=== PATIENT | male | born 1955 | race Hispanic/Latino ===

== ENCOUNTER 2021-10-23 10:24 | Emergency (ER) | payer OTHER ==
--- OUTSIDE RECORDS SUMMARY | 2021-10-23 10:27 | XMS REPORT | Continuity of Care Document ---
:1955 Author Organization [facility] t Address [address] [place] [address] [place] [id number] Care Team Providers Name Role Phone Unavailable Unavailable Unavailable Problems This patient has no known problems. Allergies, Adverse Reactions, Alerts This patient has no known allergies or adverse reactions. Medications This patient has no known medications. Procedures This patient has no known procedures. Encounters Start End Encounter Admission Attending Care Care Encounter Source Date/Time Date/Time Type Type Clinicians Facility Department ID 2021-10-13 Outpatient [facility] [id number] [facility]:53:[facility] Results This patient has no known results.
[2021-10-23 11:27] LABS: Absolute Lymphocytes (CBC) 1.4 K/uL (0.7-4.9); Basophils % 1.1 % (0-1.3); Hematocrit 47.4 % (39.6-49.0); Lymphocytes % 20.8 % (15.3-44.8); MPV 9.4 fL (7.6-11.3); RBC Red Blood Cell Count 5.54 M/uL (4.33-5.43)
[2021-10-23 11:35] LABS: BUN Blood Urea Nitrogen 17 mg/dL (7-18); Bicarbonate 29 mmol/L (21-32); Glucose Level 153 mg/dL (74-106); Potassium 4.3 mmol/L (3.5-5.1); Sodium Level 136 mmol/L (136-145); Troponin (Emerg Dept Use Only) < 0.02 ng/mL (0.0-0.045)
--- NOTE | 2021-10-23 12:07 | EDPHYS ---
Physician Documentation [facility] Name: Herb Guy Age: 66 yrs Sex: Male : 1955 Arrival Date: 10/23/2021 Time: 10:30 Bed 11 Private MD: Renaldo Rondon E ED Physician Yassine Britt HPI: 10/23 12:04 This 66 yrs old Male presents to ER via Ambulatory with complaints of High jmm Blood Pressure. 12:04 The patient has elevated blood pressure and discovered this at a physician's office. jmm Onset: The symptoms/episode began/occurred at an unknown time. Modifying factors: The symptoms are aggravated by. Associated signs and symptoms: Pertinent negatives: chest pain, dizziness, dyspnea, headache, lightheadedness, nausea, visual changes, vomiting, weakness. The patient has not experienced similar symptoms in the past. Patient denies patient denies chest pain headache, shortness of breath, vomiting, headache. Historical: - Allergies: 10:38 No Known Allergies; vg1 - Home Meds: 10:38 None [Active]; vg1 - PMHx: 10:38 Hypertensive disorder; vg1 - PSHx: 10:38 None; vg1 - Immunization history:: Client reports receiving the 2nd dose of the Covid vaccine. - Social history:: Smoking status: Patient denies any tobacco usage or history of. ROS: 12:04 Constitutional: Negative for fever, chills, and weight loss, Cardiovascular: Negative jmm for chest pain, palpitations, and edema, Respiratory: Negative for shortness of breath, cough, wheezing, and pleuritic chest pain, Abdomen/GI: Negative for abdominal pain, nausea, vomiting, diarrhea, and constipation, Neuro: Negative for headache, weakness, numbness, tingling, and seizure. 12:04 All other systems are negative. Exam: 12:04 Constitutional: This is a well developed, well nourished patient who is awake, alert, jmm and in no acute distress. Head/Face: atraumatic. Eyes: EOMI, no conjunctival erythema appreciated ENT: Moist Mucus Membranes Neck: Trachea midline, Supple Chest/axilla: Normal chest wall appearance and motion. Cardiovascular: Regular rate and rhythm. No edema appreciated Respiratory: Normal respirations, no respiratory distress appreciated Abdomen/GI: Non distended, soft Skin: General appearance color normal MS/ Extremity: Moves all extremities, no obvious deformities appreciated, no edema noted to the lower extremities Neuro: Awake and alert, normal gait Psych: Behavior is normal, Mood is normal, Patient is cooperative and pleasant Vital Signs: 10:34 BP 189 / 88; Pulse 70; Resp 16; Temp 97.7; Pulse Ox 100% ; Weight 85.28 kg; Height 5 vg1 ft. 3 in. (160.02 cm); Pain 0/10; 12:26 BP 148 / 84; Pulse 62; Resp 16; Pulse Ox 100% on R/A; Pain 0/10; ss 10:34 Body Mass Index 33.30 (85.28 kg, 160.02 cm) vg1 MDM: 10:43 Patient medically screened. luis antonio 12:05 Data reviewed: vital signs, nurses notes. Counseling: I had a detailed discussion with malgorzata the patient and/or guardian regarding: the historical points, exam findings, and any diagnostic results supporting the discharge/admit diagnosis, the need for outpatient follow up, to return to the emergency department if symptoms worsen or persist or if there are any questions or concerns that arise at home. ED course: Patient is alert and patient is alert and nontoxic in appearance in the ED. Has no complaints. Will treat with low-dose blood pressure medication advised to follow-up with PCP and otherwise given strict return precautions. Patient understood agrees plan of care. 10/23 10:51 Order name: CBC with Diff; Complete Time: 11:33 [facility] 10/23 10:51 Order name: BMP; Complete Time: 11:37 [facility] 10/23 10:51 Order name: Saline Lock; Complete Time: 11:06 [facility] 10/23 10:51 Order name: Troponin (emerg Dept Use Only); Complete Time: 11:37 [facility] 10/23 10:51 Order name: EKG - Nurse/Tech; Complete Time: 11:06 [facility] 10/23 11:08 Order name: EKG; Complete Time: 11:09 em1 Administered Medications: No medications were administered Disposition: 10/24 09:15 Co-signature as Attending Physician, Yassine Britt MD I agree with the assessment and [facility] plan of care. Disposition Summary: 10/23/21 12:06 Discharge Ordered Location: Home [facility] Condition: Stable [facility] Diagnosis - Elevated Blood Pressure [facility] Followup: [facility] - With: Renaldo Rondon MD - When: 1 - 2 days - Reason: Recheck today's complaints, Continuance of care, Re-evaluation by your physician Discharge Instructions: - Discharge Summary Sheet jm - Hypertension, Adult jm Forms: - Medication Reconciliation Form vero - Thank You Letter malgorzata - Antibiotic Education malgorzata - Prescription Opioid Use patricia Prescriptions: - hydrochlorothiazide 12.5 mg Oral tablet - take 1 tablet by ORAL route once daily; 30 tablet; Refills: 0, Product vero Selection Permitted Signatures: Dispatcher [employer] Yassine Cardenas MD MD cha Mickail, Joel, PA PA Zaynab Bentley, RN RN vg1
--- NOTE | 2021-10-23 12:07 | ER ---
Nurse's Notes [facility] Name: Herb Guy Age: 66 yrs Sex: Male : 1955 Arrival Date: 10/23/2021 Time: 10:30 Bed 11 Private MD: Renaldo Rondon E Diagnosis: Elevated Blood Pressure Presentation: 10/23 10:34 Chief complaint: Patient states: Pt was at Dr Rondon office and BP was 194/110. Pt was vg1 given Clonidine 0.1 mg about 45 minutes ago and BP was 198/98 before leaving office. Pt denies chest pain, headache, shortness of breath or difficulty breathing. Coronavirus screen: Vaccine status: Patient reports receiving the 2nd dose of the covid vaccine. Client denies travel out of the [place] in the last 14 days. Ebola Screen: Patient negative for fever greater than or equal to 101.5 degrees Fahrenheit, and additional compatible Ebola Virus Disease symptoms. Initial Sepsis Screen: Does the patient meet any 2 criteria? No. Patient's initial sepsis screen is negative. Does the patient have a suspected source of infection? No. Patient's initial sepsis screen is negative. Risk Assessment: Do you want to hurt yourself or someone else? Patient reports no desire to harm self or others. Onset of symptoms was October 23, 2021. 10:34 Method Of Arrival: Ambulatory vg1 10:34 Acuity: ERICA 3 vg1 Triage Assessment: 10:38 General: Appears in no apparent distress. comfortable, Behavior is calm, cooperative. vg1 Pain: Denies pain. Historical: - Allergies: 10:38 No Known Allergies; vg1 - Home Meds: 10:38 None [Active]; vg1 - PMHx: 10:38 Hypertensive disorder; vg1 - PSHx: 10:38 None; vg1 - Immunization history:: Client reports receiving the 2nd dose of the Covid vaccine. - Social history:: Smoking status: Patient denies any tobacco usage or history of. Screenin:56 Abuse screen: Denies threats or abuse. Denies injuries from another. Nutritional ss screening: No deficits noted. Tuberculosis screening: Never had TB. Fall Risk None identified. Assessment: 12:27 Reassessment: Patient appears in no apparent distress at this time. Patient and/or ss family updated on plan of care and expected duration. Pain level reassessed. Patient is alert, oriented x 3, equal unlabored respirations, skin warm/dry/pink. Vital Signs: 10:34 BP 189 / 88; Pulse 70; Resp 16; Temp 97.7; Pulse Ox 100% ; Weight 85.28 kg; Height 5 vg1 ft. 3 in. (160.02 cm); Pain 0/10; 12:26 BP 148 / 84; Pulse 62; Resp 16; Pulse Ox 100% on R/A; Pain 0/10; ss 10:34 Body Mass Index 33.30 (85.28 kg, 160.02 cm) vg1 ED Course: 10:30 Patient arrived in ED. am2 10:30 Renaldo Rondon MD is Private Physician. am2 10:38 Triage completed. vg1 10:38 Arm band placed on. vg1 10:41 King Davies PA is PHCP. [facility] 10:41 Yassine Britt MD is Attending Physician. [facility] 10:56 Tori Renteria, MOHSEN is Primary Nurse. ss 10:56 Patient has correct armband on for positive identification. Bed in low position. ss 11:09 Inserted saline lock: 20 gauge in right antecubital area, using aseptic technique. ss Blood collected. 12:06 Renaldo Rondon MD is Referral Physician. [facility] 12:26 No provider procedures requiring assistance completed. IV discontinued, intact, ss bleeding controlled, No redness/swelling at site. Pressure dressing applied. Administered Medications: No medications were administered Outcome: 12:06 Discharge ordered by . [facility] 12:27 Discharged to home ambulatory. 12:27 Condition: good 12:27 Discharge instructions given to patient, Instructed on discharge instructions, follow up and referral plans. medication usage, Demonstrated understanding of instructions, follow-up care, medications, Prescriptions given X 1. 12:28 Patient left the ED. Signatures: King Davies PA PA jmm Smirch, Shelby, MOHSEN RN Martina Youssef 2 Zaynab Ambrosio RN RN vg1
[2021-10-23 12:39] VITALS: TEMP 97.7; O2SAT 100
[2021-10-23 12:41] VITALS: BP 148/84
== END 2021-10-23 12:28 | disposition home or self-care (01) ==
LOC: ER 10:24
DX: I10 Essential (primary) hypertension (principal)
CPT/HCPCS: 36415; 80048; 84484; 85025; 93005; 99283

== ENCOUNTER 2024-04-28 12:06 | Inpatient (IN) | payer MEDICARE, OTHER ==
--- OUTSIDE RECORDS SUMMARY | 2024-04-28 21:57 | XMS REPORT | Continuity of Care Document ---
Author Name Unknown Address [address] [place] [address] [facility] Address [address] [place] [address] Care Team Providers Care Leaf Size Picker Name Role Phone ZULY ALMODOVAR Attending Clinician JAMIN De Los Santos Attending Clinician MIGUELITO Devlin Admitting Clinician Cora vailatayo Payers Payer Name Policy Type Policy Number Effective Date Expirati on Date Source [facility] [id number] 00:00:00 [facility] (MEDICARE REPLACEMENT HMO) [id number] 2021 00:00:00 Encounters Start Date/Time End Date/Time Encounter Type Admission Type Attending Clinicians Care Facility Care Department Encounter ID Source 2024-05-09 16:30:00 2024-05-09 16:30:00 Outpatient ZULY ALMODOVAR [facility] [id number] [facility] 2024-04-16 17:43:00 2024-04-28 19:45:00 Inpatient E JAMIN DURAN [facility] CAR [id number] [address] [facility] 2022-06-06 04:01:00 2022-06-06 04:01:00 Outpatient [facility] [id number] 2022-06-06 00:00:00 2022-06-06 00:00:00 Outpatient [facility] [id number] 2021-09-12 08:01:00 2021-09-12 08:01:00 Outpatient [facility] [id number] [facility]
[2024-04-28 22:16] VITALS: BMI 28.8
[2024-04-28] MEDS ORDERED: ATORVASTATIN 40 MG TAB ONE (22:36)
[2024-04-28] MEDS: ATORVASTATIN 40 MG TAB PO SCH (22:40)
[2024-04-29] MEDS ORDERED: MELATONIN 3 MG TABLET PO PRN (00:36)
[2024-04-29] MEDS ORDERED: DOCUSATE NA/SENNA CONC 1 TAB PO PRN (00:36)
[2024-04-29] MEDS ORDERED: ACETAMINOPHEN 500 MG TAB PO PRN (00:36)
[2024-04-29] MEDS: METOPROLOL TAR 25 MG TAB PO SCH (05:28)
[2024-04-29 05:50] LABS: Specific Gravity 1.025 (1.005-1.030); Sqamous Epithelial None Seen /HPF (None Seen); Urine Bacteria None Seen /HPF (<20); Urine Bilirubin NEGATIVE (Negative); Urine Blood Negative (Negative); Urine Clarity Clear (Clear); Urine Color Light-Yellow (Yellow); Urine Culture Reflex Order NOT NEEDED; Urine Glucose 4+ (Over) (Negative); Urine Ketones NEGATIVE (Negative); Urine Micro Reflex YN NO BILL MICROSCOPIC; Urine Mucus Slight /HPF (None Seen); Urine Nitrite NEGATIVE (Negative); Urine Protein NEGATIVE (Negative); Urine RBC <5 /HPF (None Seen); Urine Urobilinogen 1+ (Normal); Urine WBC <5 /HPF (<5)
[2024-04-29] MEDS: INSULIN REGULAR (HUMAN) 100 UNIT/ML SQ SCH (07:30)
[2024-04-29 07:51] LABS: Absolute Basophils 0.1 K/uL (0-0.5); Absolute Eosinophils 0.2 K/uL (0-0.5); Absolute Lymphocytes (CBC) 1.4 K/uL (0.7-4.9); Absolute Monocytes 0.9 K/uL (0.1-1.3); Absolute Neutrophil 6.9 K/uL (1.8-8.0); Basophils % 0.5 % (0-1.3); Eosinophils % 2.5 % (0-4.4); Hematocrit 28.8 % (39.6-49.0); Hemoglobin 9.7 g/dL (13.6-17.9); Lymphocytes % 14.8 % (15.3-44.8); MCH 28.8 pg (27.0-35.0); MCHC 33.6 g/dL (32.0-36.0); MCV 85.9 fL (80-100); MPV 8.8 fL (7.6-11.3); Monocytes % 9.3 % (3.3-12.3); Neutrophils % 72.9 % (41.7-73.7); Platelets 256 thou/uL (152-406); RBC Red Blood Cell Count 3.35 M/uL (4.33-5.43); Red Cell Distribution Width 13.9 % (12.1-15.2)
[2024-04-29] MEDS: LOSARTAN POTASSIUM 50 MG TABLET PO SCH (08:00)
[2024-04-29] MEDS: EMPAGLIFLOZIN 10 MG PO SCH (08:00)
[2024-04-29 08:32] LABS: Albumin 2.7 g/dL (3.4-5.0); Anion Gap 6.3 mEq/L (5.0-15.0); Magnesium 2.3 mg/dL (1.6-2.4); Potassium 4.3 mEq/L (3.5-5.1); Prealbumin 11.7 mg/dL (20-40)
[2024-04-29] MEDS: EZETIMIBE 10 MG TAB PO SCH (09:02)
[2024-04-29] MEDS: CLOPIDOGREL 75 MG TABLET PO SCH (09:02)
[2024-04-29] MEDS: ASPIRIN 81 MG CHEWABLE TABLET PO SCH (09:02)
[2024-04-29] MEDS: MINOCYCLINE HCL 50 MG CAP PO SCH (09:03)
--- NOTE | 2024-04-29 13:36 | P.RH.PN ---
Estimated Length of Stay: 14 Expected Discharge Date: 05/11/24 Discharge Disposition Plan: Home Family Support: Yes Senior Care Goal: Mobility, Transfers, Self Care Vital Signs: Last Vital Signs Temp 97.6 F 04/29/24 11:15 Pulse 74 04/29/24 11:15 Resp 18 04/29/24 11:15 BP 137/60 04/29/24 11:15 Pulse Ox 94 04/29/24 11:15 Laboratory: Laboratory Last Values WBC 9.50 thou/uL (4.3-10.9) 04/29/24 07:15 RBC 3.35 M/uL (4.33-5.43) L 04/29/24 07:15 Hgb 9.7 g/dL (13.6-17.9) L 04/29/24 07:15 Hct 28.8 % (39.6-49.0) L 04/29/24 07:15 MCV 85.9 fL (80-100) 04/29/24 07:15 MCH 28.8 pg (27.0-35.0) 04/29/24 07:15 MCHC 33.6 g/dL (32.0-36.0) 04/29/24 07:15 RDW 13.9 % (12.1-15.2) 04/29/24 07:15 Plt Count 256 thou/uL (152-406) 04/29/24 07:15 MPV 8.8 fL (7.6-11.3) 04/29/24 07:15 Neutrophils % 72.9 % (41.7-73.7) 04/29/24 07:15 Lymphocytes % 14.8 % (15.3-44.8) L 04/29/24 07:15 Monocytes % 9.3 % (3.3-12.3) 04/29/24 07:15 Eosinophils % 2.5 % (0-4.4) 04/29/24 07:15 Basophils % 0.5 % (0-1.3) 04/29/24 07:15 Absolute Neutrophils 6.9 K/uL (1.8-8.0) 04/29/24 07:15 Absolute Lymphocytes 1.4 K/uL (0.7-4.9) 04/29/24 07:15 Absolute Monocytes 0.9 K/uL (0.1-1.3) 04/29/24 07:15 Absolute Eosinophils 0.2 K/uL (0-0.5) 04/29/24 07:15 Absolute Basophils 0.1 K/uL (0-0.5) 04/29/24 07:15 Sodium 131 mEq/L (136-145) L 04/29/24 07:15 Potassium 4.3 mEq/L (3.5-5.1) 04/29/24 07:15 Chloride 102 mEq/L (98-107) 04/29/24 07:15 Carbon Dioxide 27 mEq/L (21-32) 04/29/24 07:15 Anion Gap 6.3 mEq/L (5.0-15.0) 04/29/24 07:15 BUN 22 mg/dL (7-18) H 04/29/24 07:15 Creatinine 0.85 mg/dL (0.70-1.30) 04/29/24 07:15 Est GFR (CKD-EPI) 95 ml/min (=/>90) 04/29/24 07:15 Glucose 93 mg/dL (74-106) 04/29/24 07:15 POC Glucose 109 mg/dL (65-120) 04/29/24 11:12 Hemoglobin A1c 5.7 % (4.2-6.3) 04/29/24 07:15 Calcium 8.5 mg/dL (8.5-10.1) 04/29/24 07:15 Magnesium 2.3 mg/dL (1.6-2.4) 04/29/24 07:15 Albumin 2.7 g/dL (3.4-5.0) L 04/29/24 07:15 Prealbumin 11.7 mg/dL (20-40) L 04/29/24 07:15 Urine Color Light-yellow (Yellow) 04/28/24 22:40 Urine Clarity Clear (Clear) 04/28/24 22:40 Urine pH 6.0 (5.0-7.0) 04/28/24 22:40 Ur Specific Peak 1.025 (1.005-1.030) 04/28/24 22:40 Glucose (UA)(Auto) 4+ (over) (Negative) H 04/28/24 22:40 Urine Ketones Negative (Negative) 04/28/24 22:40 Urine Blood Negative (Negative) 04/28/24 22:40 Urine Nitrite Negative (Negative) 04/28/24 22:40 Urine Bilirubin Negative (Negative) 04/28/24 22:40 Urine Urobilinogen 1+ (Normal) H 04/28/24 22:40 Ur Leukocyte Esterase Negative Rickey/uL (Negative) 04/28/24 22:40 Urine RBC <5 /HPF (None Seen) 04/28/24 22:40 Urine WBC <5 /HPF (<5) 04/28/24 22:40 Ur Squamous Epith Cells None seen /HPF (None Seen) 04/28/24 22:40 Urine Bacteria None seen /HPF (<20) 04/28/24 22:40 Urine Mucus Slight /HPF (None Seen) 04/28/24 22:40 Urine Culture Reflexed Not needed 04/28/24 22:40 Urine Total Protein Negative (Negative) 04/28/24 22:40 Weight: 163 lb Wound Present: No Closed Surgical Incision Present: No Negative Pressure Wound Therapy Present: No Physician Update: Na 131, prealbumin is 11.7, Hgb 9.7 on iron supp. Moderate to severe left upper weakness from his right brain stroke. CGA bed mobility, 120' x 2 with cane. Fair on balance. 20 steps one sided rail. WC 50' min assist. Summary: Patient's care plan and intermediate designer goals have been reviewed and revised as necessary. Please see the Rehabilitation Signature page for all necessary signatures.
[2024-04-29] MEDS: SODIUM CHLORIDE 1 GM TAB PO SCH (17:29)
[2024-04-29] MEDS: APIXABAN 2.5 MG TABLET PO SCH (21:26)
[2024-04-29] MEDS: ENSURE ENLIVE 237 ML CAN PO SCH (21:26)
--- NOTE | 2024-04-30 03:59 | HP ---
Date of Admission: 04/28/2024 Time Of Service: 1 p.m. Chief Complaint: "I had a stroke and my left arm is weak." History Of Present Illness: Mr. Guy is a 68-year-old right-handed patient with hypert ension, who developed sudden-onset left arm weakness and numbness while at work on 04/16/2024. He middleton d workup and evaluation, including a CT angiogram, which showed no large vessel occlusion, although t here was arthrosclerosis in the carotid bulbs. He was within the window for TNKs and did receive TNK s, however still has significant left upper extremity weakness. There was no large vessel occlusion, requiring intervention. The subsequent MRI identified an acute infarct in the right frontoparietal lobes. In addition, his stroke was complicated by [id number]-ZT-[id number] myocardial infarction on 04/16 and he was seen by Cardiology. Ejection fraction was 20% to 25%. His cardiac catheterization identified severe coronary artery disease and did have procedure on 04/25. The procedure was complicated by at rioventricular dyssynchrony and drop in blood pressure requiring a temporary pacemaker placement. It was done by the Impella-assisted PIC, that is of the right coronary artery, on 04/25. He had the re cannulization done. He did have an interrupted DAPT treatment with aspirin and Plavix. Following kingsley rgery, he had cardiac monitoring. He was evaluated by Therapy, including Speech Therapy, which showe d that the dysphagia which was around the time of the stroke had resolved. He was put on strict I's and O's, and had some issues of acute renal insufficiency, which was addressed with hydration. He di d have DVT prophylaxis throughout. He was evaluated again by Physical and Occupational Service, and found to have significant deficits of the left upper extremity; inability to manage activities such a s driving, working, and being able to return to his prior fully independent level of functioning. He did require minimum assist for bed mobilization, transferring, upper body dressing. He required mod erate assistance for lower body dressing. He did require standby assistance for ambulation with some difficulty with gait, tendency to fall to the left. Some mildly abnormal labs identified, included hemoglobin of 10.3; BUN of 23; calcium 8.1. As a result, his acute stroke with his early recovery af ter TNK is being limited and recent myocardial infarction along with his need to return to normal lev el of functioning, he is best admitted to inpatient rehabilitation for aggressive management of his c omorbid conditions and aggressive therapy. Past Medical History: As noted above. Allergies: NO KNOWN DRUG ALLERGIES. Imaging Studies: His brain CT scan on 04/18/2024 showed no acute intracranial hemorrhage. There was an area of hypoattenuation in the right frontoparietal lobes consistent with an evolving ischemic in farct, which was identified on a prior study. There was no hemorrhagic transformation. There was st able gliosis in the left occipital lobe. The MRI on the , identified areas of acute infarct in t he right frontoparietal lobe without hemorrhagic transformation. Laboratory Studies: White blood cell count 9.5, hemoglobin 9.7, platelets 256. Sodium 131, potassiu m 4.3, chloride 102, carbon dioxide 27, BUN 22, creatinine 0.85. Glucose 93, ranging up to 109. Hem oglobin A1c 5.7. Calcium 8.5, magnesium 2.3, albumin 2.7, prealbumin 11.7. Urinalysis: 4+ glucose, 1+ urobilinogen, otherwise unremarkable. Family History: Noncontributory. Social History: No recent alcohol, tobacco, or IV drug use. Review of Systems: Does report significant weakness in the left upper extremity. 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 Trace movement in the left shoulder and around 2/5 movement in the left arm. His left leg is much stronger around 4/5. Right side, no weakness re ported. Denies any nausea and vomiting. No fevers, chills. No constipation. No genitourinary issu es. No other positives on the systems review. Current Level Of Functioning: Currently, supervision for eating, oral hygiene. Moderate assistance for toileting, showering, upper body dressing, lower body dressing, and donning/doffing footwear. Fo r rolling left to right and right to left, contact guard assistance. For lying to sitting on the sli ding of bed, supervision. Sit to stand, moderate assistance. For transferring to toilet from the air, contact guard assistance. Ambulation, supervision, with a rolling walker he covered 120 feet. Physical Examination: Vital Signs: Blood pressure 137/60, pulse 74, respiratory rate 18, temperature 97.6, O2 saturation 9 4%. Weight 163 pounds, height 5 feet 3 inches, BMI 28.9. General: Mr. Guy is resting comfortably in bed. HEENT: He is normocephalic and atraumatic. He has a very poor dentition. Otherwise, no cranial ner ve deficits and no abnormalities in the head, eyes, ears, nose, throat other than mentioned. Respiratory: Good air movement. Abdomen: Soft. Heart: Regular. He does have a pacemaker defibrillator in place. Musculoskeletal: He is restricted on full movement of the left arm, which is the stroke affected segundo e. He does have again 4/5 strength proximally and distally, left lower extremity; right upper and lo wer extremities, 5/5. Decreased sensation on the left compared to the right upper and lower extremit ies. Assessment: Mr. Guy is a 68-year-old patient in the rehabilitation unit with impairment catego ry 01, stroke. His impairment group code is 01.1, left body involvement, right brain. Etiologic wilfred gnosis: Infarction of the right frontal and parietal lobes. His comorbidities are coronary artery d isease, decreased mobility, decreased physical functioning, dyslipidemia, hypertension, ald-YD-btrlrv t myocardial infarction. He has a pacemaker defibrillator. Has had bradycardia. Also, he had a low ejection fraction of 20% to 25%, and right upper extremity cephalic vein thrombophlebitis. Plan: 1.He will have physical, occupational, and speech therapy for 3.5 hours, 5/7 days. 2.He has multiple medications, which do include aspirin 81 mg daily, Tylenol 500 mg every 4 hours. We will continue it. In addition, he will continue Lipitor 40 mg at bedtime, Plavix 75 mg daily, Zet ia 40 mg daily, ferrous sulfate 325 mg daily. He does have an insulin sliding scale on board, Cozaar 50 mg daily, melatonin 3 mg at bedtime, metoprolol 12.5 mg twice daily, minoxidil 100 mg twice daily , HemocytePlus 1 tablet daily, Senokot-S 2 at bedtime, sodium chloride tablet 1 g twice daily, Ensure Enlive 237 mL twice daily. Comorbidities That Are Impacting Rehabilitation: His myocardial infarction is requiring him to be mo nitored at times and EKG may be done as appropriate. He will have nitroglycerin sublingual for any s ignificant chest pain, and Cardiology will be consulted as appropriate. He does have significant wea kness in left lower extremity and had a recent pacemaker placed there and will be watching the site f or any possible infection. Rehab Specific Plan: Mr. Guy will have physical, occupational, and speech therapy for 3.5 hour s, 5/7 days to improve his ability to transfer from bed to chair to toilet to be able to perform toil eting for transferring to the shower and performing showering, and to be able to ambulate 250 feet wi th modified independence using a rolling walker and if need be with a single prong cane. Also, up an d down 10 steps with using the right handrails and mobilized wheelchair with both legs and right arm 250 feet with modified independence. Mr. Guy will have 24 hours a day, 7 days a week [facility] and daily physician evaluation and management along with his therapy. He will have Flexo Operator evaluation and managed for disch arge planning, home equipment, and to have his followup set and medications as appropriate. Mr. Guy has good understanding of the process of admission to the inpatient rehabilitation faci lity, and how he will benefit from physical, occupational, speech therapy. If need be, additional he lp from Cardiology Service and Hospitalist Service may be required. Given his risk of complications with his comorbid conditions and his stroke, rehabilitation cannot be safely or effectively performed at a lower level facility such as [facility]. Barriers To Discharge: His pacemaker is in place and the pacemaker will be monitored. He is yet to receive the equipment to monitor it, but that apparently will be sent to him in 2 weeks. However, if need be, our bench molder apprentice service will be assisting with that and even after his discharge home. Length Of Stay: At least 2 weeks. Disposition: Home with Home Health to continue and with family support. Prognosis: Good. Rehabilitation Specific Goals: 1.Become independent with upper and lower body dressing; transferring to toilet and shower; perform toileting and showering; and independently perform activities of daily living. 2.Independently ambulate 250 feet with a rolling walker and perhaps a right hand cane. 3.Independently propel a wheelchair 250 feet with both legs and right hand. 4.Independently go up and down 10 steps with right hand and legs. 5.Independently perform all cognitive functioning, including medication management, setting followup visits, and safety awareness. The above goals were reviewed with Mr. Guy and he is in agreement. By signing this document, I acknowledge I personally performed a full physical examination on Mr. Her perales no later than 24 hours after his admission to the inpatient rehabilitation facility and determ ined that he is able to tolerate the above course of treatment at an intensive level for a reasonable period of time. A detailed individualized plan of care for him will be completed by hospital day 4 based on the preadmission screen, history and physical, and therapy evaluations. JOHN Voice ID: [id number]
[2024-04-30] MEDS: FERROUS SULFATE 325 MG TAB PO SCH (10:13)
[2024-04-30] MEDS: FE SULF/FA/VIT B COMP & C TAB PO SCH (10:14)
[2024-05-02 07:52] LABS: Absolute Basophils 0.1 K/uL (0-0.5); Absolute Eosinophils 0.3 K/uL (0-0.5); Absolute Lymphocytes (CBC) 1.6 K/uL (0.7-4.9); Absolute Monocytes 0.7 K/uL (0.1-1.3); Absolute Neutrophil 5.5 K/uL (1.8-8.0); Basophils % 1.2 % (0-1.3); Eosinophils % 3.3 % (0-4.4); Hematocrit 30.2 % (39.6-49.0); Hemoglobin 10.1 g/dL (13.6-17.9); Lymphocytes % 19.6 % (15.3-44.8); MCH 29.1 pg (27.0-35.0); MCHC 33.4 g/dL (32.0-36.0); MCV 87.3 fL (80-100); MPV 8.3 fL (7.6-11.3); Neutrophils % 66.9 % (41.7-73.7); Platelets 288 thou/uL (152-406); RBC Red Blood Cell Count 3.46 M/uL (4.33-5.43)
[2024-05-02 08:04] LABS: Anion Gap 6.5 mEq/L (5.0-15.0); Potassium 4.5 mEq/L (3.5-5.1)
--- NOTE | 2024-05-02 10:23 | P.CNS ---
Date of Consult: 05/02/24 Reason for Consult: Painful toenails Chief Complaint: Painful toenails Allergies No Known Allergies Allergy (Verified 04/28/24 22:01) Home Medications: Aspirin Chewable [Aspirin Chewable*] 81 mg PO DAILY 04/28/24 Atorvastatin Calcium 40 mg PO BEDTIME 04/28/24 Clopidogrel Bisulfate [Plavix*] 75 mg PO DAILY 04/28/24 Empagliflozin [Jardiance] 10 mg PO DAILY 04/28/24 Ezetimibe 10 mg PO DAILY 04/28/24 Losartan Potassium 50 mg PO DAILY 04/28/24 Metoprolol Tartrate [Lopressor*] 12.5 mg PO BID 04/29/24 - Past Medical/Surgical History Diabetic: Yes -: HTN -: CAD -: HLD -: Nstemi -: cva -: 04/2024 heart cath x2 w/pci -: 04/2024 CVA - TNK -: 04/25/24 - pacemaker ICD - Social History Alcohol use: Yes CD- Drugs: No Caffeine use: Yes Place of Residence: Home Review of Systems 10-point ROS is otherwise unremarkable Physical Examination Temp Pulse Resp BP Pulse Ox 97.8 F 61 18 123/66 95 05/02/24 07:38 05/02/24 07:38 05/02/24 07:38 05/02/24 07:38 05/02/24 07:38 General: Alert, In no apparent distress, Oriented x3 Cardiovascular: No edema, Normal pulses Capillary refill: <2 Seconds Musculoskeletal: No clubbing, No swelling, No contractures, No erythema, No tenderness, No warmth Integumentary: No rashes, No breakdown, No significant lesion, No tenderness/swelling, No erythema, No warmth, No cyanosis, Other (Thickened hypertrophic nails with subungual debris x 10) Neurological: Sensation intact Laboratory Data (last 24 hrs) 05/02/24 05/02/24 07:36 07:36 WBC 8.20 Hgb 10.1 L Hct 30.2 L Plt Count 288 Sodium 134 L Potassium 4.5 BUN 22 H Creatinine 0.72 Glucose 129 H - Problems (1) Tinea unguium Current Visit: Yes Status: Acute (2) 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
--- NOTE | 2024-05-03 03:50 | PN ---
Date of Progress Note: 05/02/2024 Time Of Service: 1:30 p.m. Subjective: Mr. Guy is resting in his room. 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 He does have the pacemaker in the left upper c hest with limited ability to elevate the arm due to the possibility of dislodgement, and therefore th at too combine with his stroke as the factor reducing the range of motion in the left arm elevation. Objective: No fevers, chills, myalgias, arthralgias, rash, headache, weight change. No other compla ints. Physical Examination: Vital Signs: Blood pressure 123/66, pulse 61, respiratory rate 18, temperature 97, oxygen saturation 95%. General: Mr. Guy is resting in bed. Family at the bedside. HEENT: He is normocephalic, atraumatic. He has poor dentition. Sclerae anicteric. Oropharynx is o therwise moist. Abdomen: Soft. Chest: Clear. Extremities: In terms of strength in the left deltoid, he has 3/5, biceps 3/5. Finger flexion and e xtension 2 to 3/5. His left lower extremity 4/5 proximally and distally. Laboratory Studies: White blood cell count 8.2, hemoglobin 10.1, platelets 288. Sodium 134, potassi um 4.5, chloride 106, carbon dioxide 26, BUN 22, creatinine 0.72, glucose ranged from 81 to 129, calc ium 9.0. Urinalysis on the 6th shows 4+ glucose, 1+ urobilinogen. X-ray/imaging: No new x-rays or imaging. Consultation: He was seen by Dr. Guanaco Condon on the Podiatry Service. He did debridement of the na ils at bedside. Progress Made With Physical, Occupational, And Speech Therapy: With physical therapy today, he ambul ated 250 feet, 350 feet, 125 feet with contact guard assistance. He goes up and down 10 steps and th en 15 steps with bilateral handrails and contact guard assistance. Ainmkw-ps-osh transfers done with standby assistance. Qdk-kw-ndaiz transfers done with standby assistance. With occupational therapy , independent with toileting, supervision for bathing, supervision also for upper body dressing and l ower body dressing, grooming independent. With speech, independently recalled 4/[address] 7 minutes delay, needed moderate to minimal assistance for recalling details based in the past pr esented. He was able to recall 10 of 20 items within a concrete category and 1 minute. Mr. Guy is making slow progress of his recovery of strength in left lower extremity, but otherw ise doing very well in the left lower extremity where his stroke is less impactful. Making some prog ress as well with his speech. Assessment: Mr. Guy is a 68-year-old patient in the rehabilitation unit with right hemispheric stroke and left upper more than lower extremity weakness and numbness. His speech and swallowing ar e preserved. He has pacemaker implanted. His comorbidities do include hypertension, ara-UO-apnrlea myocardial infarction, dyslipidemia, decreased mobility, decreased physical functioning, and bradycar wilfred and pacemaker placement and thrombophlebitis of the right upper extremity and low cardiac ejectio n fraction. Plan: 1.Continue with physical, occupational, and speech therapy for 3.5 hours, 5 of 7 days. 2.Continue with all his medications which include his treatment for DVT prophylaxis including Eliqui s 2.5 mg twice daily, stroke risk reduction with aspirin 81 mg daily and Lipitor 40 mg at bedtime, me latonin for insomnia, Lopressor for heart rate control, blood pressure addressed with the minocycline and Hemocyte Plus and Ensure Enlive, ferrous sulfate for his anemia and malnutrition, Senokot-S for constipation, sodium chloride tablets for hyponatremia. Comorbidities That Are Impacting Rehabilitation: His comorbid conditions are stably managed. They d o not negatively impact his rehabilitation. LB/МАРИНА Voice ID: [id number] Report ID: [id number]
[2024-05-03] MEDS: INSULIN REGULAR (HUMAN) 100 UNIT/ML SQ SCH (07:00)
--- NOTE | 2024-05-04 00:17 | PN ---
Date of Progress Note: 05/03/2024 Time Of Service: 1:35 p.m. Subjective: Mr. Guy is in his room. He is making slow progress in terms of recovery of streng th in left upper extremity. He can lift the left arm higher and flex the forearm with improved stren gth. 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 He does have pacemaker in the left chest implanted there and has some restriction to the full range of motion, but that is again limited by his stroke and weaknes s. Objective: No myalgias, arthralgias. No rash. No psychiatric complaints, gastrointestinal complain ts. Physical Examination: Vital Signs: Blood pressure 155/59, pulse 62, respiratory rate 18, temperature 97.6, oxygen saturati on 97%. General: Mr. Guy again is sitting in a chair. Family is at bedside. HEENT: He is normocephalic, atraumatic. He has poor dentition. He is atraumatic otherwise. Extremities: In terms of strength in the deltoid on the left at 3/5 biceps, 3/5 wrist flexion and ex tension, 2/5 in lower extremity, 4/5 on the left, 5/5 in right upper and lower extremity. Decreased sensation to light touch in the left compared to the right upper and lower extremities. Laboratory Studies: White blood cell count 8.2, hemoglobin 10.1, platelets 288. Glucose 113, trigly cerides 48, total cholesterol 77, LDL Crestor 33, HDL 34, cholesterol to HDL ratio 2.26. Medications: Have been reviewed. He is on Eliquis for depression, Tylenol for pain. He does have C ozaar for blood pressure control, melatonin for insomnia, Lopressor as well for blood pressure contro l, and minocycline, that is his antibiotic. Senokot-S for constipation. He has salt tablets for low sodium levels and his sodium diet has been now restricted and so that is a regular diet. Progress Made With Physical, Occupational, And Speech Therapy: Today with physical therapy, multiple tks-yo-jsifz transfer independently. He ambulated with a right forearm crutch 1000 feet and then 75 0 feet independently. He did have good upright posture and crutch placement. He ascended and descen ded 25 steps with bilateral handrails independently. With occupational therapy, completed lunch acti vities with independence. With speech, he was able to recall 4/4 unrelated words after 5 and 10-idalia te delay. He is showing improving working memory. He was able to name 15 items in the concrete rhea gory in 1 minute in 1 of 4 opportunities. Mr. Guy is making good progress overall with his physical, occupational, and speech therapy. 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 Assessment: Mr. Guy is a 68-year-old patient in rehabilitation unit with a right frontal hemis pheric stroke producing left arm more than leg and face weakness. He has decreased mobility, decreas ed physical functioning, cardiac placement for bradycardia, thrombophlebitis of right upper extremity . Plan: 1.Continue with physical, occupational, and speech therapy for 3.5 hours, 5 of 7 days. 2.Continue DVT prophylaxis with Eliquis. Continue aspirin, Lipitor for stroke risk reduction, ivette onin for insomnia, Lopressor for heart rate control along with minocycline for his blood pressure con trol, Ensure Enlive and ferrous sulfate for malnutrition and anemia, Senokot-S for constipation, hypo natremia addressed with sodium tablets. Comorbidities That Are Impacting Rehabilitation: As noted previously, comorbidities are stably manag ed and do not negatively impact his rehabilitation. NAJMA/MODL Voice ID: [id number] Report ID: [id number]
[2024-05-05 06:51] VITALS: BP 134/63; TEMP 97
[2024-05-05 07:16] LABS: Absolute Basophils 0.1 K/uL (0-0.5); Absolute Eosinophils 0.3 K/uL (0-0.5); Absolute Lymphocytes (CBC) 1.3 K/uL (0.7-4.9); Absolute Monocytes 0.6 K/uL (0.1-1.3); Absolute Neutrophil 5.9 K/uL (1.8-8.0); Eosinophils % 3.3 % (0-4.4); Hematocrit 29.9 % (39.6-49.0); Hemoglobin 10.1 g/dL (13.6-17.9); Lymphocytes % 16.3 % (15.3-44.8); MCH 29.3 pg (27.0-35.0); MCHC 33.6 g/dL (32.0-36.0); MCV 87.2 fL (80-100); MPV 8.1 fL (7.6-11.3); Monocytes % 7.6 % (3.3-12.3); Neutrophils % 71.8 % (41.7-73.7); Platelets 282 thou/uL (152-406); RBC Red Blood Cell Count 3.43 M/uL (4.33-5.43); Red Cell Distribution Width 14.1 % (12.1-15.2)
[2024-05-05 07:43] LABS: Albumin 2.7 g/dL (3.4-5.0); Anion Gap 4.6 mEq/L (5.0-15.0); Potassium 4.6 mEq/L (3.5-5.1); Prealbumin 14.5 mg/dL (20-40)
== END 2024-05-05 10:15 | disposition home or self-care (01) | DRG 56 ==
LOC: 5TH 12:35 → UNDOADMIN 12:35 → 5TH 21:35
PROVIDERS: ADMIT Psychiatry & Neurology Neurology with Special Qualifications in Child Neurology; ATTEND Psychiatry & Neurology Neurology with Special Qualifications in Child Neurology
PROC: 0HBRXZZ Excision of Toe Nail, External Approach (ICD-10-PCS; principal; 2024-05-02)
PROC: 0HBRXZZ Excision of Toe Nail, External Approach (ICD-10-PCS; 2024-05-02)
PROC: 0HBRXZZ Excision of Toe Nail, External Approach (ICD-10-PCS; 2024-05-02)
PROC: 0HBRXZZ Excision of Toe Nail, External Approach (ICD-10-PCS; 2024-05-02)
PROC: 0HBRXZZ Excision of Toe Nail, External Approach (ICD-10-PCS; 2024-05-02)
PROC: 0HBRXZZ Excision of Toe Nail, External Approach (ICD-10-PCS; 2024-05-02)
PROC: 0HBRXZZ Excision of Toe Nail, External Approach (ICD-10-PCS; 2024-05-02)
PROC: 0HBRXZZ Excision of Toe Nail, External Approach (ICD-10-PCS; 2024-05-02)
PROC: 0HBRXZZ Excision of Toe Nail, External Approach (ICD-10-PCS; 2024-05-02)
PROC: 0HBRXZZ Excision of Toe Nail, External Approach (ICD-10-PCS; 2024-05-02)
DX: I69.398 Other sequelae of cerebral infarction (principal); I21.4 Non-ST elevation (NSTEMI) myocardial infarction; E46 Unspecified protein-calorie malnutrition; E87.1 Hypo-osmolality and hyponatremia; I69.334 Monoplegia of upper limb following cerebral infarction affecting left non-dominant side; F32.A Depression, unspecified; R26.89 Other abnormalities of gait and mobility; B35.1 Tinea unguium; I10 Essential (primary) hypertension; I25.10 Atherosclerotic heart disease of native coronary artery without angina pectoris; E78.5 Hyperlipidemia, unspecified; R00.1 Bradycardia, unspecified; D64.9 Anemia, unspecified; G47.00 Insomnia, unspecified; K59.00 Constipation, unspecified; Z79.01 Long term (current) use of anticoagulants; Z95.0 Presence of cardiac pacemaker; Z68.29 Body mass index [BMI] 29.0-29.9, adult
CPT/HCPCS: 36415; 80048; 80061; 81001; 82040; 82947; 83036; 83735; 84134; 85025; 87086; 87088; 92523; 97110; 97112; 97116; 97129; 97163; 97165; 97530; 97542

== ENCOUNTER 2024-11-22 22:28 | Emergency (ER) | payer MEDICARE ==
[2024-11-22] MEDS ORDERED: TDAP (DIPHTH,PERTUSS(ACELL),TET VAC) 0.5 ML VIAL IMVAC ONE (22:52)
--- NOTE | 2024-11-22 23:36 | EDPHYS ---
Physician Documentation [facility] Name: Herb Guy Age: 69 yrs Sex: Male : 1955 Arrival Date: 11/22/2024 Time: 22:28 Bed 18 Private MD: ED Physician Yassine Britt HPI: 11/22 23:32 This 69 yrs old Male presents to ER via Ambulatory with complaints of kb Laceration To Hand. 23:32 Pt is a 69 year old male who presents for laceration to left hand after tripping and kb falling onto a pallet just area captain. States he has normal ROM to hand and didn't want to come in but his children made him. Denies any other injuries, denies loc. . Historical: - Allergies: 22:45 No Known Allergies; cp4 - PMHx: 22:45 Hypertensive disorder; Myocardial infarction; cp4 - PSHx: 22:45 3 stents; defib/pacemaker; cp4 - Immunization history:: Adult Immunizations up to date. - Infectious Disease History:: Denies. - Social history:: Smoking status: Patient denies any tobacco usage or history of. ROS: 23:30 Constitutional: As per HPI kb Exam: 23:30 Constitutional: This is a well developed, well nourished patient who is awake, alert, kb and in no acute distress. Head/Face: Normocephalic, atraumatic. Eyes: Pupils equal round and reactive to light, extra-ocular motions intact. Lids and lashes normal. Conjunctiva and sclera are non-icteric and not injected. Cornea within normal limits. Periorbital areas with no swelling, redness, or edema. ENT: Moist Mucous membranes Cardiovascular: Regular rate Respiratory: Respirations even and unlabored. No increased work of breathing. Talking in full sentences MS/ Extremity: Pulses equal, no cyanosis. Neurovascular intact. Full, normal range of motion. Neuro: Awake and alert, GCS 15, oriented to person, place, time, and situation. 23:30 Skin: abrasion to right side of nose due to glasses, abrasion to third and fourth digits on left hand, skin tear to fifth digit on left hand. Vital Signs: 22:44 BP 157 / 69; Pulse 75; Resp 18; Temp 98.2; Pulse Ox 95% ; Pain 0/10; cp4 23:50 BP 149 / 64; cp4 23:50 Pulse 71; Resp 18; Pulse Ox 96% ; cp4 22:44 Pain Scale: Adult cp4 MDM: 22:36 Medical Screening Exam initiated 23:32 Differential diagnosis: superficial laceration, tendon injury, vascular injury, kb fracture. Data reviewed: vital signs, nurses notes. Historians other than the Patient: Spouse/Significant Other: . Counseling: I had a detailed discussion with the patient and/or guardian regarding the historical points, exam findings, and any diagnostic results supporting the discharge/admit diagnosis, radiology results, the need for outpatient follow up, a family practitioner, to return to the emergency department if symptoms worsen or persist or if there are any questions or concerns that arise at home. 23:34 Independent interpretation of the following test(s) in the Emergency Department X-Ray: kb My interpretation is no fracture. 11/22 22:43 Order name: Hand Left 3 View XRAY kb 11/22 22:43 Order name: Wound Care: clean, apply steristrips and dress; Complete Time: 22:55 kb Administered Medications: 22:55 Drug: Boostrix Tdap IM 0.5 ml IM once; as a single dose Route: IM; Site: right deltoid; cp4 23:53 Follow up: Response: No adverse reaction cp4 Disposition: 11/23 06:45 Co-signature as Attending Physician, Yassine Britt MD I agree with the assessment and luis antonio plan of care. Disposition Summary: 11/22/24 23:35 Discharge Ordered Notes: Location: Home kb Condition: Stable kb Diagnosis - Laceration without foreign body of left hand - skin tear kb - Abrasion of nose kb - Abrasion of left hand kb - Abrasion of right hand kb Followup: kb - With: Emergency Department - When: As needed - Reason: Worsening of condition Followup: kb - With: Private Physician - When: 2 - 3 days - Reason: Recheck today's complaints, Continuance of care, Re-evaluation by your physician Discharge Instructions: - Discharge Summary Sheet kb - Deep Skin Avulsion kb - Laceration Care, Adult, [id number] kb Forms: - Medication Reconciliation Form kb - Antibiotic Education kb - Prescription Opioid Use kb - Patient Portal Instructions kb - Leadership Thank You Letter kb Prescriptions: - Cephalexin 500 mg Oral Capsule - take 1 capsule ORAL route every 8 hours for 10 days; 30 capsule; Refills: 0, kb Product Selection Permitted Signatures: Dispatcher [employer] EDMS Karen Ortiz, FERDINAND SHUKLA-Yassine Okeefe MD MD cha Potter, Christina cp4 Corrections: (The following items were deleted from the chart) 11/22 22:44 22:44 Hand Left 3 View+RAD.RAD.BRZ ordered. EDMS EDMS 22:46 22:45 Allergies: Aspirin; cp4 cp4 23:34 23:30 Skin: abrasion to right side of nose due to glasses, abrasion to second and third kb digits on left hand, skin tear to fourth digit on left hand. kb
--- NOTE | 2024-11-22 23:36 | ER ---
Nurse's Notes [facility] Name: Herb Guy Age: 69 yrs Sex: Male : 1955 Arrival Date: 11/22/2024 Time: 22:28 Bed 18 Private MD: Diagnosis: Laceration without foreign body of left hand-skin tear;Abrasion of nose;Abrasion of left hand;Abrasion of right hand Presentation: 11/22 22:44 Chief complaint: Patient states: laceration to the left fingers due to a fall on wet cp4 ground. Coronavirus screen: Client denies travel out of the [place] in the last 14 days. At this time, the client does not indicate any symptoms associated with coronavirus-19. Ebola Screen: Patient negative for fever greater than or equal to 101.5 degrees Fahrenheit, and additional compatible Ebola Virus Disease symptoms Patient denies exposure to infectious person. Patient denies travel to an Ebola-affected area in the 21 days before illness onset. No symptoms or risks identified at this time. Complicating Factors: There are no complicating factors for this patient. Initial Sepsis Screen: Does the patient meet any 2 criteria? No. Patient's initial sepsis screen is negative. Does the patient have a suspected source of infection? No. Patient's initial sepsis screen is negative. Risk Assessment: Do you want to hurt yourself or someone else? Patient reports no desire to harm self or others. Onset of symptoms was November 22, 2024. 22:44 Method Of Arrival: Ambulatory cp4 22:44 Acuity: ERICA 4 cp4 Triage Assessment: 22:45 General: Appears in no apparent distress. comfortable, Behavior is calm, cooperative, cp4 appropriate for age. Pain: Denies pain. EENT: No signs and/or symptoms were reported regarding the EENT system. Neuro: Level of Consciousness is awake, alert, obeys commands, Oriented to person, place, time, situation. Cardiovascular: Patient's skin is warm and dry. Respiratory: Airway is patent Respiratory effort is even, unlabored. GI: No signs and/or symptoms were reported involving the gastrointestinal system. : No signs and/or symptoms were reported regarding the genitourinary system. Derm: No signs and/or symptoms reported regarding the dermatologic system. Musculoskeletal: No signs and/or symptoms reported regarding the musculoskeletal system. Injury Description: Laceration sustained to left hand is jagged, was sustained 30-60 minutes ago. is bleeding a small amount. Historical: - Allergies: 22:45 No Known Allergies; cp4 - PMHx: 22:45 Hypertensive disorder; Myocardial infarction; cp4 - PSHx: 22:45 3 stents; defib/pacemaker; cp4 - Immunization history:: Adult Immunizations up to date. - Infectious Disease History:: Denies. - Social history:: Smoking status: Patient denies any tobacco usage or history of. Screenin:47 [facility] ED Fall Risk Assessment (Adult) History of falling in the last 3 months, cp4 including since admission Yes- single mechanical fall (1 pt) Confusion or Disorientation No (0 pts) Intoxicated or Sedated No (0 pts) Impaired Gait No (0 pts) Mobility Assist Device Used No (0 pt) Altered Elimination No (0 pt) Score/Fall Risk Level 0 - 2 = Low Risk Oriented to surroundings, Maintained a safe environment, Assessed \T\ reinforced patient's understanding of fall precautions, Provided non-skid footwear, Hourly rounding (assess needs \T\ fall precautionary measures) done. Abuse screen: Denies threats or abuse. Nutritional screening: No deficits noted. Tuberculosis screening: No symptoms or risk factors identified. Assessment: 22:47 Reassessment: No changes from previously documented assessment. cp4 Vital Signs: 22:44 BP 157 / 69; Pulse 75; Resp 18; Temp 98.2; Pulse Ox 95% ; Pain 0/10; cp4 23:50 BP 149 / 64; cp4 23:50 Pulse 71; Resp 18; Pulse Ox 96% ; cp4 22:44 Pain Scale: Adult cp4 ED Course: 22:32 Patient arrived in ED. gm2 22:36 Karen [facility]iz [facility]NP[facility]C [facility] kb 22:36 Yassine Britt MD is Attending Physician. kb 22:39 Yenifer Granados is Primary Nurse. cp4 22:45 Triage completed. cp4 22:45 Arm band placed on right wrist. Patient placed in waiting room. cp4 22:47 Bed in low position. Call light in reach. Side rails up X 1. cp4 22:47 No provider procedures requiring assistance completed. Patient did not have IV access cp4 during this emergency room visit. 23:24 Hand Left 3 View XRAY In Process Unspecified. EDMS 23:54 Provided Education on: laceration.. cp4 Administered Medications: 22:55 Drug: Boostrix Tdap IM 0.5 ml IM once; as a single dose Route: IM; Site: right deltoid; cp4 23:53 Follow up: Response: No adverse reaction cp4 Medication: 22:47 VIS not applicable for this client. cp4 Outcome: 23:35 Discharge ordered by MD. ponce 23:54 Discharged to home ambulatory, cp4 23:54 Condition: stable 23:54 Discharge instructions given to patient, family, Instructed on discharge instructions, follow up and referral plans. medication usage, Demonstrated understanding of instructions, follow-up care, medications, Prescriptions given X 1, 23:55 Patient left the ED. cp4 Signatures: Dispatcher [employer] EDMS Karen Ortiz, FERDINAND ELECTRICIAN MASTER-Yenifer Silva cp4 Nimco Arceo 2 Corrections: (The following items were deleted from the chart) 22:46 22:45 Allergies: Aspirin; cp4 cp4
--- NOTE | 2024-11-23 00:28 | RAD REPORT ---
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 COMPARISON: None. FINDINGS: 3 X-ray views of the left hand (frontal lateral and oblique projections) were performed. There is s uboptimal positioning of the fingers limiting diagnostic value. There is a metallic ring within the fourth finger also limiting diagnostic value. Bones: The bones are slightly demineralized. No areas of acute bony injuries were demonstrated. Carpa l bones demonstrate to be unremarkable. Soft tissues: Area of the laceration/gap within the dorsal aspect PIP joint. Joints: No gross articular abnormality is identified. Others: There are no gross intraosseous lesions. No periosteal reaction were seen. No radiopaque foreign body. IMPRESSION: No acute bony injuries were demonstrated. Area of the laceration/gap within the dorsal aspect PIP joint. Electronically signed by: Thomas Murry MD 11/22/2024 11:51 PM STUDENT ADMISSIONS CLERK Due to temporary technical issues with the PACS/[employer] reporting system, reports are being mohit d by the in-house radiologist without review as a courtesy to ensure prompt reporting the interpreting radiologist is fully responsible for the content of the report. Transcribed Date/Time: 11/23/2024 12:27 AM
[2024-11-23 07:05] VITALS: TEMP 98.2
[2024-11-23 07:07] VITALS: BP 149/64; O2SAT 96
== END 2024-11-22 23:55 | disposition home or self-care (01) ==
LOC: ER 22:28
DX: S61.412A Laceration without foreign body of left hand, initial encounter (principal); S00.31XA Abrasion of nose, initial encounter; S60.512A Abrasion of left hand, initial encounter; S60.511A Abrasion of right hand, initial encounter; W01.0XXA Fall on same level from slipping, tripping and stumbling without subsequent striking against object, initial encounter; Z95.810 Presence of automatic (implantable) cardiac defibrillator
CPT/HCPCS: 96372; 99284